=== PATIENT | male | born 1960 | race Caucasian/White ===

== ENCOUNTER 2017-04-05 13:30 | Outpatient (RCR) | payer MEDICARE, BC ==
[~2017-04-05 13:30] MED LIST: BENADRYL25 MG ORAL; COGENTIN1 MG ORAL; DEPAKOTE500 MG PO; DIVALPROEX SOD500 M2 PO; ENSURE PO; GEODON20 MG ORAL; GEODON40 MG ORAL; GEODON60 MG PO; KLONOPIN0.5 MG ORAL; LEXAPRO10 MG ORAL; PAXIL10 MG ORAL; PRILOSEC10 M1 ORAL; QUETIAPINE FUM200 MG ORAL; SEROQUEL100 MG ORAL; SEROQUEL200 MG ORAL; TYLENOL325 MG ORAL
--- NOTE | 2017-04-10 11:43 | IOP Daily Group Progress Note ---
IOP Daily Group Progress Note Treatment Plan/Target Problem: Date: Apr 10, 2017 Problem: depression Program: reflections Group Reflections - Sunday: group 2 (10:35am-11:20am) Therapy Focus/Approach of Group: skills Goal(s) of Group: anxiety reduction, impact of current issues on mood Observations: anxious, depressed mood, participated Staff Intervention: facilitated discussion, provided product support technician Intervention: A Cognitive Behavioral Therapy (CBT) exercise was presented helping the pt identify particularly challenging situations and obtain support and input regarding coping options. Pt participated actively and identified stressors which would benefit from coping input. He worked on anger management issues regarding his brother, who he finds untrustworthy. JAYLYN ALEXANDER Apr 10, 2017 11:43
[2017-04-12] MEDS ORDERED: KLONOPIN0.5 MG ORAL (15:01)
== END 2017-04-30 | disposition home or self-care (01) ==
LOC: PTY 13:30
DX: M75.22 Bicipital tendinitis, left shoulder (principal); F32.9 Major depressive disorder, single episode, unspecified; F41.9 Anxiety disorder, unspecified; F17.200 Nicotine dependence, unspecified, uncomplicated
CPT/HCPCS: 97110; 97140; 97161; G8984; G8985

== ENCOUNTER 2017-05-24 09:00 | Outpatient (RCR) | payer MEDICARE, BC ==
--- NOTE | 2017-05-10 15:25 | IOP Daily Group Progress Note ---
IOP Daily Group Progress Note Treatment Plan/Target Problem: Date: May 10, 2017 Problem: depression Program: reflections Group - Sunday: group 2 (10:35am-11:20am) Therapy Goal(s) of Group: coping tools for symptoms, coping with change, identify mood , symptom management Observations: anxious, focused, responded to prompts Staff Intervention: assisted identifying coping tools, normalized feelings, reframed Staff Intervention: Explored with patient how the past determines how one perceive and responds to the present. Explored how emotional ( attachment issues) cargo for the early family system still effects them in the present. Also explored what dysfunctional patterns they are still working on today that are connected to their past (early family system). Group was an emotionally undateing process, Group members explored more effectively strategies resolve past issues that lead to more functional way of coping in the present. JAIRO ROBERTS May 10, 2017 15:25
== END 2017-05-31 | disposition home or self-care (01) ==
LOC: PTY 09:00
DX: M75.22 Bicipital tendinitis, left shoulder (principal); F32.9 Major depressive disorder, single episode, unspecified; F41.9 Anxiety disorder, unspecified; F17.200 Nicotine dependence, unspecified, uncomplicated
CPT/HCPCS: 97035; 97110; G8978; G8979

== ENCOUNTER 2017-06-26 09:00 | Outpatient (RCR) | payer MEDICARE, BC ==
--- NOTE | 2017-06-11 10:00 | Reflections ---
Date : 06/07/2017 Subjective: The patient is pleasant, calm, and cooperative with interview. Follows directions. Denies any new complaints. The main concern recently has been weight gain. He had increased appetite and craves carbohydrates and in the past 3 years since he moved into the [facility], he has gained 30 pounds. He has difficulty to limit his food intake and he does not exercise much and he plays cards. We discussed this multiple times before and we discussed again medication and possibility of medications influencing his weight gain. At this point, the patient does not want any changes. We will continue to monitor the case and assess medication regimen as time goes by. Gomez Chawla M.D. DR: MAIKOL JOB#: [id number] CC: ELICEO
[~2017-06-26 09:00] MED LIST changes: +DEPAKOTE250 MG PO
[2017-06-28] MEDS ORDERED: PREVACID15 MG ORAL (12:15)
[2017-10-04] MEDS ORDERED: KLONOPIN1 MG ORAL (15:57)
[2017-10-04] MEDS ORDERED: KLONOPIN0.5 MG ORAL ×2 (15:57)
== END 2017-06-30 | disposition home or self-care (01) ==
LOC: PTY 09:00
DX: M75.22 Bicipital tendinitis, left shoulder (principal); M75.21 Bicipital tendinitis, right shoulder; F32.9 Major depressive disorder, single episode, unspecified; F41.9 Anxiety disorder, unspecified; F17.200 Nicotine dependence, unspecified, uncomplicated

== ENCOUNTER 2017-07-24 09:00 | Outpatient (RCR) | payer MEDICARE, BC ==
--- NOTE | 2017-07-19 15:42 | IOP Daily Group Progress Note ---
IOP Daily Group Progress Note Treatment Plan/Target Problem: Date: Jul 19, 2017 Problem: depression, impaired thoughts Group Reflections - : group 2 (10:35am-11:20am) Therapy Focus/Approach of Group: skills Goal(s) of Group: counteracting negative thinking, improving self esteem Observations: animated, anxious, attentive, concrete thinking, depressed mood, engaged, participated, participated spontaneously Staff Intervention: assessed pt's current mood, clarified pt issues, facilitated discussion, provided psycho-education, provided reassurance, provided support Response/Progress Noted: Pt. is encouraged to reflect upon his inner resources in a more accurate manner. He acknowledges UNDER-APPRAISING his inner resources. Pt. acknowledges scoring in 92nd percentile on GMAT and having completed and [employer] from a prestigious school. He also acknowledges patterns of avoidance which may be self reinforcing. Pt. is encouraged to contemplate possibility that he is capable of more than he is giving himself credit for. VIGNESH BETANCOURT Jul 19, 2017 15:42
[~2017-07-24 09:00] MED LIST changes: +PREVACID15 MG ORAL
--- NOTE | 2017-07-28 04:15 | Reflections ---
Date: 07/26/2017 SUBJECTIVE: The patient is pleasant, calm, and cooperative with interview. Follows directions. Denies any new complaints. He is actually feeling better, less anxious, irritable and depressed. MENTAL STATUS EVALUATION: Alert and oriented to self and situation. Mood is anxious. Affect is appropriate. Thought process is linear. Cognition is intact. Impulse control, insight, and judgment is fair. DIAGNOSIS: Bipolar disorder. PLAN: Continue with current management. Continue to monitor symptoms and behavior. Medications reviewed. Chart reviewed. Case was discussed with staff. Gomez Chawla M.D. DR: MAIKOL JOB#: [id number] CC: ELICEO
[2017-10-04] MEDS ORDERED: KLONOPIN1 MG ORAL (15:57)
[2017-10-04] MEDS ORDERED: KLONOPIN0.5 MG ORAL ×2 (15:57)
== END 2017-07-31 | disposition home or self-care (01) ==
LOC: PTY 09:00
DX: M75.22 Bicipital tendinitis, left shoulder (principal); F32.9 Major depressive disorder, single episode, unspecified; F41.9 Anxiety disorder, unspecified; F17.200 Nicotine dependence, unspecified, uncomplicated

== ENCOUNTER 2017-08-28 09:00 | Outpatient (RCR) | payer MEDICARE, BC ==
--- NOTE | 2017-08-02 23:00 | Reflections ---
Date 08/02/2017 SUBJECTIVE: The patient continues to be anxious, mildly irritable, and slightly agitated. He has intermittent compulsions and command hallucinations. He contracts for safety. Denies any suicidal ideations or violent intent. Medications have been discussed and reviewed again. At this point, I have decided not to make any changes. MENTAL STATUS EVALUATION: Alert and oriented to self and situation. Mood is anxious. Affect is appropriate. Thought process is linear. Cognition is intact. Insight and judgment is fair. DIAGNOSIS: Bipolar disorder, depressed. PLAN: Continue with current management. Continue to monitor symptoms and behavior. Medications reviewed. Chart reviewed. Case discussed with staff. The patient is seen in brief supportive psychotherapy. Otherwise, we will continue to monitor the case. Gomez Chawla M.D. DR: LINNETTE JOB#: [id number] CC: ELICEO
[2017-10-04] MEDS ORDERED: KLONOPIN1 MG ORAL (15:57)
[2017-10-04] MEDS ORDERED: KLONOPIN0.5 MG ORAL ×2 (15:57)
== END 2017-08-30 | disposition home or self-care (01) ==
LOC: PTY 09:00
DX: S83.241D Other tear of medial meniscus, current injury, right knee, subsequent encounter (principal); M75.22 Bicipital tendinitis, left shoulder

== ENCOUNTER 2017-09-25 09:00 | Outpatient (RCR) | payer MEDICARE, BC ==
--- NOTE | 2017-09-13 14:19 | IOP Daily Group Progress Note ---
IOP Daily Group Progress Note Treatment Plan/Target Problem: Date: Sep 13, 2017 Problem: depression Program: reflections Group Reflections - : group 1 (9:40am-10:25am) Therapy Focus/Approach of Group: process Goal(s) of Group: identify triggers to symptoms Observations: positive mood Staff Intervention: assessed pt's current mood, facilitated discussion Response/Progress Noted: Pt. reports that living with his mother is better than living at a [facility]. Indeed, pt. appears a bit too high functioning to be happy in a [facility] environment. Pt. rates mood this week, as significantly improved from last week, precisely because of move out of [facility] and into mother's house. VIGNESH BETANCOURT Sep 13, 2017 14:19
--- NOTE | 2017-09-14 02:15 | Reflections ---
DATE: 09/13/2017 SUBJECTIVE: The patient is withdrawn, guarded, anxious, and internally preoccupied. No new symptoms, sedation, or side effects. MENTAL STATUS EVALUATION: Alert and oriented to self and situation. Mood is anxious and restricted. Affect is labile. Thought process is linear and impoverished. Insight and judgment is impaired. DIAGNOSIS: Schizoaffective disorder, depressed. PLAN: Continue with current management. Continue to monitor symptoms and behavior. Medications reviewed. Chart reviewed. Case was discussed with staff. No new symptoms, sedation, or side effects. Otherwise, we will continue to monitor the case. Gomez Chawla M.D. DR: Tom JOB#: [id number] CC: ELICEO
[2017-10-04] MEDS ORDERED: KLONOPIN0.5 MG ORAL ×2 (15:57)
[2017-10-04] MEDS ORDERED: KLONOPIN1 MG ORAL (15:57)
== END 2017-09-30 | disposition home or self-care (01) ==
LOC: PTY 09:00
DX: S83.241D Other tear of medial meniscus, current injury, right knee, subsequent encounter (principal)
CPT/HCPCS: 97110; 97140; G8984; G8985

== ENCOUNTER 2018-02-28 09:29 | Outpatient (CLI) | payer MEDICARE, BC ==
[~2018-02-28 09:29] MED LIST changes: +KLONOPIN1 MG ORAL
== END 2018-02-28 11:29 | disposition home or self-care (01) ==
LOC: LAB 09:29
DX: F25.9 Schizoaffective disorder, unspecified (principal)
CPT/HCPCS: 36415; 80164